=== PATIENT | male | born 1985 | race Caucasian/White ===

== ENCOUNTER 2018-10-23 23:29 | Emergency (ER) | payer OTHER ==
[2018-10-23] MEDS ORDERED: NORMAL SALINE 1000 ML 1,000 ML IV ONE (23:56)
--- NOTE | 2018-10-23 23:59 | ER Document Report ---
ED General - General Chief Complaint: Chest Pain > 30 Stated Complaint: CHEST PAIN/DIZZINESS Time Seen by Provider: 10/23/18 23:46 Notes: Patient is a 33-year-old male that comes emergency department for chief complaint of lightheadedness, he states he was playing a board and when he suddenly started feeling very lightheaded like he needed to lie down, he states that short time after this he also started feeling like it was difficult to take a deep breath and started feeling a discomfort and tightness in his chest. He states he started feeling tingling in his extremities. He states that was intermittent and he does not currently feel any pain in his chest. He denies nausea or vomiting, flank pain. His only current reported symptoms are lightheadedness. He states he has been drinking alcohol tonight, he states he is only had "a couple of beers". He denies recreational drugs or smoking. He denies any family history, he is diagnosed and treated for both anxiety and ADHD. TRAVEL OUTSIDE OF THE [place] IN LAST 30 DAYS: No - Related Data Allergies/Adverse Reactions: No Known Allergies Allergy (Unverified 10/23/18 23:33) Past Medical History - General Information source: Patient - Social History Smoking Status: Never Smoker Drug Abuse: None Lives with: Family Family History: Reviewed & Not Pertinent Psychiatric Medical History: Reports: Hx Anxiety, Hx Attention Deficit Hyperactivity Disorder Surgical Hx: Negative - Immunizations Immunizations up to date: Yes Hx Diphtheria, Pertussis, Tetanus Vaccination: Yes Review of Systems - Review of Systems Constitutional: See HPI EENT: No symptoms reported Cardiovascular: See HPI Respiratory: See HPI Gastrointestinal: No symptoms reported Genitourinary: No symptoms reported Male Genitourinary: No symptoms reported Musculoskeletal: No symptoms reported Skin: No symptoms reported Hematologic/Lymphatic: No symptoms reported Neurological/Psychological: No symptoms reported Physical Exam - Vital signs Vitals: Pulse Ox 99 10/23/18 23:46 - Notes Notes: GENERAL: Alert, interactive, somewhat anxious in appearance HEAD: Normocephalic, atraumatic. EYES: Pupils equal, round, and reactive to light. Extraocular movements intact. ENT: Oral mucosa dry, tongue midline. Oropharynx unremarkable. Airway patent. NECK: Full range of motion. Supple. Trachea midline. LUNGS: Clear to auscultation bilaterally, no wheezes, rales, or rhonchi. No respiratory distress. HEART: Borderline tachycardia, normal rhythm. No murmur ABDOMEN: Soft, non-tender. Non-distended. EXTREMITIES: Moves all 4 extremities spontaneously. No edema, normal radial and dorsalis pedis pulses bilaterally. No cyanosis. BACK: no cervical, thoracic, lumbar midline tenderness. No saddle anesthesia, normal distal neurovascular exam. Moves all extremities in full range of motion. NEUROLOGICAL: Alert and oriented x3. Normal speech. Cranial nerves II through XII grossly intact. PSYCH: Speaks somewhat anxiously SKIN: Warm, dry, normal turgor. No rashes or lesions noted. Course - Re-evaluation Re-evalutation: Nursing note states that patient said he felt "an explosion in the chest", however I clarified with patient he specifically states that it only feels like a tightness and pressure. He does not have any current pain. He appears mildly anxious, he is borderline tachycardic, his lungs are clear, his heart rhythm is normal and no murmur is noted, no fever. Patient has dry mucous membranes. Patient is not toxic in appearance. Work-up pending. Giving IV fluids. On reevaluation patient is much more relaxed. He tells me that he feels much improved after being given the IV fluids. He states that his lightheadedness is gone and he overall feels much better. He states that he spent the day outside working in the heat and thinks he might of overexerted. Creatinine is borderline at 1.3, urinalysis with mildly elevated specific gravity after 2 L of IV fluids, CBC, chemistry unremarkable, EKG, chest x-ray, troponin unremarkable. Patient is now asking to leave after hydration. I suspect patient had a combination of symptoms from heat exhaustion and some anxiety, based on his presentation, improvement, I have low suspicion of ACS or emergent etiology otherwise. I did discuss possibly performing d-dimer and CTA because of his borderline tachycardia and symptoms but patient declined, states he has no symptoms now, states he will return if he worsens. Stable at time of discharge. - Vital Signs Vital signs: Temp Pulse Resp BP Pulse Ox 97.7 F 20 141/76 H 96 10/24/18 02:01 10/24/18 02:01 10/24/18 02:01 10/24/18 02:01 - Laboratory Result Diagrams: 10/23/18 23:56 10/23/18 23:56 Laboratory results interpreted by me: 10/23/18 10/23/18 22:56 23:56 Creatinine 1.30 H Glucose 125 H Creatine Kinase 319 H - EKG Interpretation by Me Additional EKG results interpreted by me: EKG shows sinus tachycardia at a rate of 102, QTC of 443, normal axis, no T wave inversions or ST segment changes in leads. Discharge - Discharge Clinical Impression: Light-headedness, Dehydration, Chest tightness Condition: Stable Disposition: HOME, SELF-CARE Additional Instructions: Your work-up shows dehydration but no other concerning findings. Rest and continue to hydrate at home. Follow-up with primary care. Return if you worsen including passing out, vomiting, inability to urinate, returned pain in your chest, or any other concerning symptoms. Forms: Return to Work
[2018-10-24 00:10] LABS: ABSOLUTE BASOPHILS # (AUTO) 0.1 10^3/uL (0.0-0.2); ABSOLUTE EOSINOPHILS # (AUTO) 0.2 10^3/uL (0.0-0.6); ABSOLUTE LYMPHOCYTES (AUTO) 2.2 10^3/uL (0.5-4.7); ABSOLUTE MONOCYTES (AUTO) 0.7 10^3/uL (0.1-1.4); ABSOLUTE NEUT (AUTO) 3.5 10^3/uL (1.7-8.2); BASOPHILS % (AUTO) 0.8 % (0-2); EOSINOPHILS % (AUTO) 2.8 % (0-6); HEMATOCRIT 44.4 % (37.9-51.0); HEMOGLOBIN 15.3 g/dL (13.5-17.0); LYMPHOCYTES % (AUTO) 32.5 % (13-45); MEAN CORPUSCULAR HEMOGLOBIN 29.1 pg (27.0-33.4); MEAN CORPUSCULAR HGB CONC 34.4 g/dL (32.0-36.0); MEAN CORPUSCULAR VOLUME 85 fl (80-97); MONOCYTES % (AUTO) 11.1 % (3-13); PLATELET COUNT 312 10^3/uL (150-450); RED BLOOD COUNT 5.25 10^6/uL (4.35-5.55); RED CELL DISTRIBUTION WIDTH 13.4 % (11.5-14.0); SEGMENTED NEUTROPHILS % (AUTO) 52.8 % (42-78); TOTAL CELLS COUNTED % (AUTO) 100 %; WHITE BLOOD COUNT 6.7 10^3/uL (4.0-10.5)
[2018-10-24 00:23] LABS: ALBUMIN 4.8 g/dL (3.5-5.0); ALKALINE PHOSPHATASE 74 U/L (38-126); ANION GAP 11 (5-19); ASPARTATE AMINO TRANSFERASE 46 U/L (17-59); BILIRUBIN,DIRECT 0.4 mg/dL (0.0-0.4); BILIRUBIN,TOTAL 0.6 mg/dL (0.2-1.3); BLOOD UREA NITROGEN 15 mg/dL (7-20); CALCIUM 9.6 mg/dL (8.4-10.2); CARBON DIOXIDE 27 mmol/L (22-30); CHLORIDE 99 mmol/L (98-107); GLUCOSE 125 mg/dL (75-110); POTASSIUM 4.1 mmol/L (3.6-5.0); TOTAL PROTEIN 8.1 g/dL (6.3-8.2)
[2018-10-24 00:27] LABS: ALCOHOL < 10 mg/dL (NONE DETECTED)
[2018-10-24] MEDS ORDERED: NORMAL SALINE 1000 ML 1,000 ML IV ONE (00:48)
--- NOTE | 2018-10-24 00:52 | RADIOLOGY REPORT (SQ) ---
EXAM DESCRIPTION: XR CHEST 1 VIEW COMPLETED DATE/TME: 10/23/2018 23:57 CLINICAL HISTORY: 33 years, Male, chest pain, dizziness Comparison: None FINDINGS: No focal lung consolidation. No pleural effusion. No pneumothorax. Cardiac and mediastinal silhouette is unremarkable. No acute osseous abnormality. Soft tissues are unremarkable. IMPRESSION: No acute findings. No focal lung consolidation.
[2018-10-24 02:02] LABS: APPEARANCE,URINE CLEAR; BILIRUBIN,URINE NEGATIVE (NEGATIVE); COLOR,URINE YELLOW; GLUCOSE, URINE NEGATIVE (NEGATIVE); KETONES,URINE NEGATIVE (NEGATIVE); LEUKOCYTE ESTERASE,URINE NEGATIVE (NEGATIVE); NITRITE,URINE NEGATIVE (NEGATIVE); PROTEIN,URINE NEGATIVE (NEGATIVE); UROBILINOGEN,URINE NEGATIVE mg/dL (<2.0)
[2018-10-24 02:17] VITALS: BP 141/76
--- NOTE | 2018-10-24 14:19 | EKG REPORT ---
SEVERITY:- OTHERWISE NORMAL ECG - SINUS TACHYCARDIA : Confirmed by: Wero Clayton 24-Oct-2018 14:18:47
== END 2018-10-24 02:26 | disposition home or self-care (01) ==
LOC: ER 23:29
DX: R07.89 Other chest pain (principal); E86.0 Dehydration; R42 Dizziness and giddiness; R20.2 Paresthesia of skin; F41.9 Anxiety disorder, unspecified; F90.9 Attention-deficit hyperactivity disorder, unspecified type; Z79.899 Other long term (current) drug therapy
CPT/HCPCS: 93005; 36415; 80307; 82550; 83690; 85025; 80053; 81001; 84484; 71045; 93010; J7030; 96360; 96361; 99284